=== PATIENT | male | born 1975 | race Caucasian/White ===

== ENCOUNTER → 2016-08-23 | Outpatient (CLI) | payer BC ==
--- NOTE | 2016-08-23 20:51 | PN ---
41-year-old male patient with severe obstructive sleep apnea diagnosed recently and was found to have an apnea-hypopnea index of 69. Currently the patient is on CPAP pressure of 8 cm of water. I am seeing him for a compliancy check. His average CPAP use is ( ) hours per night. His leak factor is only at 4 liters, and he is using an AirFit P10 nasal pillows. His apnea-hypopnea score is dropped down to 2.8. His [place] score is down to 8. Clinically doing well. Alert and awake during the day. His sleep quality has improved significantly. He has no specific complaints for now. BP is 119/78, pulse 84, respirations 18. Weight is 207, temperature 98.4. [place] score is 8, saturation 99% on room air. GENERAL APPEARANCE: Calm, comfortable. HEENT: Mallampati class IV with tonsillar enlargement. LUNGS: Clear to auscultation. HEART: Heart sounds are regular rate and rhythm. Normal S1, S2. No S3. No murmurs. ABDOMEN: Soft, nontender. No organomegaly. EXTREMITIES: No edema. No cyanosis, or clubbing. IMPRESSION: Severe obstructive sleep apnea with an AHI of 69. Contents of a pressure of 8 cm of water with excellent clinical response and compliance. PLAN: 1. Continue the treatment same level of pressure. 2. See me back in a year's time in follow-up. 3. Treatment is successful for the time being.
== END | disposition home or self-care (01) ==
LOC: SLEEP 16:31
PROVIDERS: ATTEND Internal Medicine Critical Care Medicine
DX: G47.33 Obstructive sleep apnea (adult) (pediatric) (principal)

== ENCOUNTER → 2017-10-10 | Outpatient (CLI) | payer BC ==
--- NOTE | 2017-10-10 16:50 | PN ---
PROGRESS NOTE This is a 42-year-old male patient coming in for an annual check regarding his JANINA treatment. The patient has been diagnosed having severe symptomatic obstructive sleep apnea with an AHI of 69, and currently the patient is on a CPAP pressure of 8 cm of water. His interval history is negative for any significant new medical problems or new-onset comorbidities. He has gained around 7 pounds since his last evaluation, knowing that used to weigh around 210. Currently he is up to 217 with a BMI of 32. He continues to benefit from CPAP therapy. He tells me that he cannot go to sleep without using his CPAP machine. He is utilizing the AirFit P10 nose pillows. His compliance data was reviewed. The patient's CPAP use for more than 4 hours is 28/30. His average CPAP use is around 7.8 hours per night. His leak factor is 7 L/minute. His AHI is down to 1.8. The patient is benefitting from the treatment. He is trying to get refills on his supplies. His [place] score is 12. No falling asleep during day-to-day activities. No falling asleep while driving. No sleep paralysis. No hallucinations. No cataplexy. REVIEW OF SYSTEMS: CONSTITUTIONAL: Positive for weight gain of around 7 pounds. No fever, chills or night sweats. No other constitutional symptoms. CARDIOVASCULAR: Negative for angina or palpitations. PULMONARY: Negative for cough, sputum production or wheezing. GI: Negative for nausea, vomiting abdominal pain or GI bleed. is negative for dysuria, frequency, urgency. NEUROLOGIC: Negative for headaches or change in mental status or dizziness or ataxia. PSYCHIATRIC: Negative for anxiety or depression. Skin is negative for any wounds or ulceration. Musculoskeletal is negative for any falls, fractures or joint deformities. PHYSICAL EXAMINATION: BP is 123/70, pulse 80, respiratory rate 16, temperature 98.2, saturation 98% on room air. GENERAL APPEARANCE: Calm, comfortable., Head is atraumatic, normocephalic. Neck is Mallampati class IV. There is no goiter or neck masses. LUNGS: Clear to auscultation. HEART: Heart sounds are regular rate and rhythm. Normal S1, S2. No S3. No S4. No murmurs. ABDOMEN: Soft, nontender. No organomegaly. EXTREMITIES: No edema. No cyanosis or clubbing. SKIN: Negative for any wounds or ulceration. IMPRESSION: 1. Symptomatic obstructive sleep apnea with an AHI of 69. The patient continues to benefit from treatment and treatment remains successful with a pressure of 8 cm of water. 2. Obesity with interval weight gain. BMI is up to 32. 3. Hypersomnia, improved. 4. Post-traumatic stress disorder. PLAN: 1. Continue CPAP therapy at the same level of pressure. 2. Renew the patient's AirFit P10 nasal pillows. 3. Encourage weight loss. 4. Implement good sleep hygiene measures. 5. Will continue to follow. See me back in a year's time or earlier if needed. Treatment remains successful. MMODL / IJN: [id number] /
== END | disposition home or self-care (01) ==
LOC: SLEEP 13:03
PROVIDERS: ATTEND Internal Medicine Critical Care Medicine
DX: G47.33 Obstructive sleep apnea (adult) (pediatric) (principal); F43.10 Post-traumatic stress disorder, unspecified; G47.10 Hypersomnia, unspecified; E66.9 Obesity, unspecified; Z99.89 Dependence on other enabling machines and devices; Z68.32 Body mass index [BMI] 32.0-32.9, adult

== ENCOUNTER → 2018-02-17 | Outpatient (CLI) | payer BC ==
--- NOTE | 2018-02-17 19:50 | MR ---
EXAMINATION TYPE: MR lumbar spine wo/w con DATE OF EXAM: 02/17/2018 COMPARISON: 07/08/2017 lumbar spine radiographs HISTORY: Low back pain TECHNIQUE: Multiplanar, multisequence images of the lumbar spine were acquired utilizing [address] gadolinium contrast. FINDINGS: Transitional vertebrae is suspected at L5-S1 and therefore correlation with radiographs is recommended prior to any surgical intervention. For the purposes of this examination at S1-S2 is cons idered to have a rudimentary intervertebral disc and counting began to L5 (labeled on T2 sagittal trinity ges). There is a very mild retrolisthesis of L4 on L5. There is straightening of the usual lumbar lordosis that may relate to muscular sprain/spasm or patie nt positioning. The conus medullaris is unremarkable terminating at L1-L2. T2/T1 hyperintense vertebr al body hemangioma is seen of L2. L1-L2: Normal disc appearance without desiccation. No herniation, protrusion or disc bulging. No ca nal stenosis is present. Foramina are patent bilaterally. L2-L3: Normal disc appearance without desiccation. No herniation, protrusion or disc bulging. No ca nal stenosis is present. Foramina are patent bilaterally. L3-L4: There is a central annular tear and very small central disc herniation/protrusion superimposed upon a broad-based disc bulge. No spinal canal stenosis or neural foraminal narrowing. L4-L5: There is a moderate central disc herniation superimposed upon a broad-based disc bulge with ma ss effect upon the ventral thecal sac and nerve roots creating moderate spinal canal stenosis in comb ination with facet arthropathy and ligamentum flavum buckling. No significant neural foraminal narrow ing is seen. L5-S1: There is a small central disc herniation/protrusion superimposed upon a left eccentric broad-b ased disc bulge creating mild right neural foraminal narrowing and moderate left neural foraminal wilder rowing as well as mild spinal canal stenosis. There is no abnormal postcontrast enhancement throughout the lumbar spine. IMPRESSION: 1. Moderate central disc herniation at L4-L5 creating moderate spinal canal stenosis in combination w ith ligamentum flavum buckling and facet arthropathy. 2. Small central disc herniation superimposed on a left eccentric disc bulge at L5-S1 resulting in mo derate left neural foraminal narrowing, mild spinal canal stenosis and mild right neural foraminal na rrowing. 3. Small annular tear and very small central disc herniation at L3-L4 without spinal canal stenosis o r neural foraminal narrowing. 4. Evaluation of the images is recommended prior to any surgical intervention as there is lumbarizati on and L5 is labeled on T2 sagittal images.
== END | disposition home or self-care (01) ==
LOC: RADMRIMAIN 09:44
PROVIDERS: ATTEND Family Medicine
DX: M48.061 Spinal stenosis, lumbar region without neurogenic claudication (principal); M99.73 Connective tissue and disc stenosis of intervertebral foramina of lumbar region; M51.27 Other intervertebral disc displacement, lumbosacral region; M46.96 Unspecified inflammatory spondylopathy, lumbar region
CPT/HCPCS: 72158; A9581

== ENCOUNTER → 2019-05-27 | Outpatient (CLI) | payer OTHER ==
--- NOTE | 2019-05-27 08:37 | US ---
EXAMINATION TYPE: US liver DATE OF EXAM: 05/27/2019 COMPARISON: NONE CLINICAL HISTORY: R94.5 Abnormal results of liver function studies. Abnormal labs EXAM MEASUREMENTS: Liver Length: 16.1 cm Gallbladder Wall: 0.2 cm Right Kidney: 9.8 x 5.9 x 6.1 cm Pancreas: Obscured by bowel gas Liver: There is increased echogenicity of the hepatic parenchyma with diminished visualization of th e portal triads most commonly relating to hepatic steatosis and limiting evaluation for underlying he patic masses. Hypoechoic area, possible focal fatty sparing adjacent to the gallbladder measures 1.2 cm Gallbladder: Fold seen, otherwise unremarkable Evidence for sonographic Oswald's sign: neg CBD: Obscured by overlying bowel gas Right Kidney: No hydronephrosis or masses seen IMPRESSION: 1. Sonographic findings most commonly related to hepatic steatosis. Correlate with liver function res ults. Focal area near the gallbladder fossa most commonly relates to focal fatty sparing in this loca tion. 2. Pancreas and common bile duct are obscured by bowel gas.
== END | disposition home or self-care (01) ==
LOC: RADUSWWP 07:05
DX: R94.5 Abnormal results of liver function studies (principal)
CPT/HCPCS: 76705

== ENCOUNTER 2024-11-21 06:43 | Day surgery (SDC) | payer BC ==
[2024-11-21 07:27] VITALS: TEMP 97.5
[2024-11-21] MEDS: LACTATED RINGERS 1,000 ML IV SCH (07:49)
[2024-11-21] MEDS: IV FLUID CONTINUATION 1,000 ML IV ONE (07:49)
[2024-11-21] MEDS ORDERED: PROPOFOL 10 MG/ML 20 ML VIAL IV ONE (08:02)
--- NOTE | 2024-11-21 08:08 | P.GSHP ---
History of Present Illness H&P Date: 11/21/24 Chief Complaint: GI bleed This is a 49-year-old male who for complaints of rectal bleeding. Patient presents today for colonoscopy. Past Medical History Additional Past Medical History / Comment(s): Obstructive sleep apnea, maintained on CPAP therapy, tinnitus, rectal bleeding History of Any Multi-Drug Resistant Organisms: None Reported Past Surgical History: Back Surgery Additional Past Surgical History / Comment(s): pain clinic injections x 31 Past Anesthesia/Blood Transfusion Reactions: No Reported Reaction Smoking Status: Never smoker - Past Family History Sister(s) Family Medical History: Cancer Additional Family Medical History / Comment(s): breast cancer Medications and Allergies Home Medications Medication Instructions Recorded Confirmed Type Venlafaxine HCl [Effexor XR] 225 mg PO DAILY 11/19/24 11/19/24 History buPROPion HCL [Wellbutrin XL] 150 mg PO DAILY 11/19/24 11/19/24 History Allergies Allergy/AdvReac Type Severity Reaction Status Date / Time No Known Allergies Allergy Verified 11/21/24 07:20 Surgical - Exam Vital Signs Temp Pulse Resp BP Pulse Ox 97.5 F L 99 18 130/84 99 11/21/24 07:24 11/21/24 07:24 11/21/24 07:24 11/21/24 07:24 11/21/24 07:24 - General well developed, well nourished, no distress - Eyes PERRL - ENT normal pinna - Neck no masses - Respiratory normal expansion - Cardiovascular Rhythm: regular - Abdomen Abdomen: soft Assessment and Plan Plan: GI bleed. Will perform colonoscopy.
[2024-11-21 08:27] VITALS: RESP 14
--- NOTE | 2024-11-21 08:38 | P.OP ---
Date of Procedure: 11/21/24 Preoperative Diagnosis: GI bleed Postoperative Diagnosis: Diverticulosis External hemorrhoids Procedure(s) Performed: Colonoscopy Anesthesia: MAC Surgeon: Ashwin Hoff Pathology: none sent Condition: stable Disposition: PACU Description of Procedure: The patient was placed on the endoscopy table in the lateral position. He received IV sedation. Digital rectal exam was performed. This revealed external hemorrhoids. Flexible colonoscope was then placed patient anus passed throughout the entire colon. The ileocecal valve was visualized. The cecum, ascending and transverse colon appeared normal. In the descending sigmoid colon there was mild diverticular changes. The scope was brought back the rectum was normal scope withdrawn through the anus and internal/external hemorrhoids were noted. There is no evidence of GI bleed. It is presumed the patient may have had bleeding from hemorrhoids.
[2024-11-21 08:52] VITALS: BP 109/77; PULSE 68
== END 2024-11-21 09:14 | disposition home or self-care (01) ==
LOC: ORWHC2ENDO 06:43
PROVIDERS: ATTEND Surgery
DX: K64.8 Other hemorrhoids (principal); K64.4 Residual hemorrhoidal skin tags; K57.30 Diverticulosis of large intestine without perforation or abscess without bleeding; G47.33 Obstructive sleep apnea (adult) (pediatric); F41.9 Anxiety disorder, unspecified; F32.A Depression, unspecified; F43.10 Post-traumatic stress disorder, unspecified; Z79.899 Other long term (current) drug therapy
CPT/HCPCS: 45378; J2704